=== PATIENT | female | born 1965 | race Caucasian/White ===

== ENCOUNTER 2017-05-28 16:42 | Emergency (ER) | payer OTHER | END 2017-05-28 17:49 | disposition home or self-care (01) | LOC: ER 16:42 | DX: M79.672 Pain in left foot (principal); X50.0XXA Overexertion from strenuous movement or load, initial encounter; Y92.019 Unspecified place in single-family (private) house as the place of occurrence of the external cause; Z79.891 Long term (current) use of opiate analgesic; Z79.899 Other long term (current) drug therapy | CPT/HCPCS: 73630; 99070; 99283 ==